=== PATIENT | male | born 1955 | race Caucasian/White ===

== ENCOUNTER 2017-05-27 10:01 | Observation (INO) | payer BC ==
[2017-05-27] MEDS ORDERED: NITROGLYCERIN OINT 1 INCH/GM PACKET TOPICAL STA (10:19)
[2017-05-27] MEDS ORDERED: ASPIRIN 81 MG CHEW PO STA (10:19)
--- NOTE | 2017-05-27 10:22 | ED ---
General Adult HPI - General Chief complaint: Chest Pain Stated complaint: Chest Pain Time Seen by Provider: 05/27/17 10:05 Source: patient, EMS, RN notes reviewed Mode of arrival: EMS Limitations: no limitations - History of Present Illness Initial comments: This is a 62-year-old male who presents emergency Department complaining of feeling nauseated. Patient states he then went to the bathroom and shortly thereafter started getting chest pain that radiated to his arm and it felt like a squeezing sensation both of his chest and his arm. Patient states he became very lightheaded at that point thought he might pass out. Patient denies passing out. Patient states he had no palpitations she denies any shortness of breath or difficulty breathing or any diaphoretic episodes. Patient states the discomfort in his chest and arm lasted for approximately 30 minutes. Patient denies any history of diabetes hypertension or high cholesterol he denies smoking and he denies any family history of heart disease. Patient states she' s not been feeling sick in any other way lately he denies fever denies chills or cough. Patient denies any abdominal pain. Patient denies any vomiting or diarrhea. - Related Data Home Medications Medication Instructions Recorded Confirmed Ibuprofen [Motrin] 400 mg PO Q8HR PRN 05/27/17 05/27/17 Allergies Allergy/AdvReac Type Severity Reaction Status Date / Time No Known Allergies Allergy Verified 05/27/17 10:28 Review of Systems ROS Statement: Those systems with pertinent positive or pertinent negative responses have been documented in the HPI. ROS Other: All systems not noted in ROS Statement are negative. Past Medical History Past Medical History: No Reported History Additional Past Medical History / Comment(s): back pain History of Any Multi-Drug Resistant Organisms: None Reported Additional Past Surgical History / Comment(s): , tendon reattached to right arm, . SINUS SURGERY. MPH PAIN PROCEDURES Past Anesthesia/Blood Transfusion Reactions: Postoperative Nausea & Vomiting ( PONV) Past Psychological History: No Psychological Hx Reported Smoking Status: Never smoker - Past Family History Father Family Medical History: Cancer General Exam - General Exam Comments Initial Comments: GENERAL: Patient is well-developed and well-nourished. Patient is nontoxic and well- hydrated and is in mild distress. ENT: Neck is soft and supple. No significant lymphadenopathy is noted. Oropharynx is clear. Moist mucous membranes. Neck has full range of motion without eliciting any pain. EYES: The sclera were anicteric and conjunctiva were pink and moist. Extraocular movements were intact and pupils were equal round and reactive to light. Eyelids were unremarkable. PULMONARY: Unlabored respirations. Good breath sounds bilaterally. No audible rales rhonchi or wheezing was noted. CARDIOVASCULAR: There is a regular rate and rhythm without any murmurs gallops or rubs. ABDOMEN: Soft and nontender with normal bowel sounds. No palpable organomegaly was noted. There is no palpable pulsatile mass. SKIN: Skin is clear with no lesions or rashes and otherwise unremarkable. NEUROLOGIC: Patient is alert and oriented x3. Cranial nerves II through XII are grossly intact. Motor and sensory are also intact. Normal speech, volume and content. Symmetrical smile. MUSCULOSKELETAL: Normal extremities with adequate strength and full range of motion. No lower extremity swelling or edema. No calf tenderness. LYMPHATICS: No significant lymphadenopathy is noted PSYCHIATRIC: Normal psychiatric evaluation. Normal interpersonal interactions appears functionally intact in deals appropriately with others. No signs of depression. No signs of anxiety. Limitations: no limitations Course Vital Signs 05/27/17 05/27/17 10:03 11:07 Temperature 97.8 F 97.9 F Pulse Rate 63 67 Respiratory 17 18 Rate Blood Pressure 136/72 113/61 O2 Sat by Pulse 96 97 Oximetry Medical Decision Making - Medical Decision Making EKG shows normal sinus rhythm at 64 bpm TN interval 170 QRS is 106 QT interval 360 QTC is 379 per patient's EKG shows no ST segment elevation or depression. Chest x-ray shows no acute normalities. I started the patient heparin because the significance of his clinical symptoms so he had no risk factors I spoke with Dr. Fletcher agreed to admit the patient I admitted the patient I wrote admitting orders and consult to cardiology. I continue the heparin and aspirin and Nitropaste on the floor. - Lab Data Result diagrams: 05/27/17 10:05/27/17 10:09 Lab Results 05/27/17 05/27/17 05/27/17 Range/Units 10:09 10: 10: WBC 4.5 (3.8-10.6) k/uL RBC 4.81 (4.30-5.90) m/uL Hgb 14.8 (13.0-17.5) gm/dL Hct 43.7 (39.0-53.0) % MCV 90.9 (80.0-100.0) fL MCH 30.9 (25.0-35.0) pg MCHC 34.0 (31.0-37.0) g/dL RDW 13.8 (11.5-15.5) % Plt Count 175 (150-450) k/uL Neutrophils % 66 % Lymphocytes % 21 % Monocytes % 8 % Eosinophils % 3 % Basophils % 1 % Neutrophils # 2.9 (1.3-7.7) k/uL Lymphocytes # 0.9 L (1.0-4.8) k/uL Monocytes # 0.3 (0-1.0) k/uL Eosinophils # 0.1 (0-0.7) k/uL Basophils # 0.0 (0-0.2) k/uL PT (9.0-12.0) sec INR (<1.2) APTT (22.0-30.0) sec Sodium 139 (137-145) mmol/L Potassium 4.3 (3.5-5.1) mmol/L Chloride 105 (98-107) mmol/L Carbon Dioxide 26 (22-30) mmol/L Anion Gap 8 mmol/L BUN 16 (9-20) mg/dL Creatinine 0.97 (0.66-1.25) mg/dL Est GFR (MDRD) Af Amer >60 (>60 ml/min/1.73 sqM) Est GFR (MDRD) Non-Af >60 (>60 ml/min/1.73 sqM) Glucose 108 H (74-99) mg/dL Calcium 9.0 (8.4-10.2) mg/dL Magnesium 1.8 (1.6-2.3) mg/dL Total Bilirubin 0.5 (0.2-1.3) mg/dL AST 21 (17-59) U/L ALT 39 (21-72) U/L Alkaline Phosphatase 72 (38-126) U/L Total Creatine Kinase 129 (55-170) U/L CK-MB (CK-2) 2.0 (0.0-2.4) ng/mL CK-MB (CK-2) Rel Index 1.6 Troponin I <0.012 (0.000-0.034) ng/mL Total Protein 6.5 (6.3-8.2) g/dL Albumin 3.9 (3.5-5.0) g/dL 05/27/17 Range/Units 10:09 WBC (3.8-10.6) k/uL RBC (4.30-5.90) m/uL Hgb (13.0-17.5) gm/dL Hct (39.0-53.0) % MCV (80.0-100.0) fL MCH (25.0-35.0) pg MCHC (31.0-37.0) g/dL RDW (11.5-15.5) % Plt Count (150-450) k/uL Neutrophils % % Lymphocytes % % Monocytes % % Eosinophils % % Basophils % % Neutrophils # (1.3-7.7) k/uL Lymphocytes # (1.0-4.8) k/uL Monocytes # (0-1.0) k/uL Eosinophils # (0-0.7) k/uL Basophils # (0-0.2) k/uL PT 10.4 (9.0-12.0) sec INR 1.0 (<1.2) APTT 24.5 (22.0-30.0) sec Sodium (137-145) mmol/L Potassium (3.5-5.1) mmol/L Chloride (98-107) mmol/L Carbon Dioxide (22-30) mmol/L Anion Gap mmol/L BUN (9-20) mg/dL Creatinine (0.66-1.25) mg/dL Est GFR (MDRD) Af Amer (>60 ml/min/1.73 sqM) Est GFR (MDRD) Non-Af (>60 ml/min/1.73 sqM) Glucose (74-99) mg/dL Calcium (8.4-10.2) mg/dL Magnesium (1.6-2.3) mg/dL Total Bilirubin (0.2-1.3) mg/dL AST (17-59) U/L ALT (21-72) U/L Alkaline Phosphatase (38-126) U/L Total Creatine Kinase (55-170) U/L CK-MB (CK-2) (0.0-2.4) ng/mL CK-MB (CK-2) Rel Index Troponin I (0.000-0.034) ng/mL Total Protein (6.3-8.2) g/dL Albumin (3.5-5.0) g/dL Critical Care Time Critical Care Time: Yes Total Critical Care Time: 35 Disposition Clinical Impression: Unstable angina pectoris Disposition: ADMITTED IP TO THIS HOSP Referrals: Kwame Dsouza MD [Primary Care Provider] - 1-2 days Time of Disposition: 11:28
[2017-05-27 10:29] LABS: Basophils % (A) 1 %; CH 31.4; CHCM 34.7; Eosinophils # (A) 0.1 k/uL (0-0.7); Eosinophils % (A) 3 %; HCT 43.7 % (39.0-53.0); HDW 2.64; HGB 14.8 gm/dL (13.0-17.5); Luc # (Auto) 0.08; Luc % (Auto) 2; Lymphocytes # (A) 0.9 k/uL (1.0-4.8); Lymphocytes % (A) 21 %; MCH 30.9 pg (25.0-35.0); MCV 90.9 fL (80.0-100.0); Mean Platelet Volume 7.8; Monocytes # (A) 0.3 k/uL (0-1.0); Monocytes % (A) 8 %; Neutrophils # (A) 2.9 k/uL (1.3-7.7); Neutrophils % (A) 66 %; RBC 4.81 m/uL (4.30-5.90); RDW 13.8 % (11.5-15.5); WBC 4.5 k/uL (3.8-10.6); WBC (Perox) 4.55
[2017-05-27 10:38] LABS: Partial Thromboplastin Time 24.5 sec (22.0-30.0); Prothrombin Time 10.4 sec (9.0-12.0)
[2017-05-27 10:44] LABS: ALT 39 U/L (21-72); AST 21 U/L (17-59); Alkaline Phosphatase 72 U/L (38-126); Anion Gap 8 mmol/L; Blood Urea Nitrogen 16 mg/dL (9-20); Carbon Dioxide 26 mmol/L (22-30); Chloride 105 mmol/L (98-107); Glucose 108 mg/dL (74-99); Magnesium 1.8 mg/dL (1.6-2.3); Non-African American GFR(MDRD) >60 (>60 ml/min/1.73 sqM); Potassium 4.3 mmol/L (3.5-5.1); Sodium 139 mmol/L (137-145); Total Bilirubin 0.5 mg/dL (0.2-1.3); Total Protein 6.5 g/dL (6.3-8.2)
--- NOTE | 2017-05-27 10:53 | XR ---
EXAMINATION TYPE: XR chest 2V DATE OF EXAM: 05/27/2017 COMPARISON: None HISTORY: 52-year-old male with chest pain TECHNIQUE: PA and lateral views FINDINGS: Heart is normal size. Mild elongation/ectasia of the thoracic aorta. Some prominence to the central p ulmonary arteries on the frontal view is not confirmed on the lateral view. Strandy atelectasis in th e mid and lower lungs. No consolidation or pleural effusion seen. IMPRESSION: Mild elongation/change of the thoracic aorta. Strandy areas of atelectasis. No acute process seen.
[2017-05-27 11:00] LABS: Creatine Kinase 129 U/L (55-170)
[2017-05-27 11:13] LABS: Troponin I <0.012 ng/mL (0.000-0.034)
[2017-05-27] MEDS ORDERED: NITROGLYCERIN SL TABS 0.4 MG TAB SUBLINGUAL PRN (11:29)
[2017-05-27] MEDS ORDERED: HEPARIN SODIUM,PORCINE 5,000 UNIT/ML 1 ML VIAL IV ONE (11:32)
[2017-05-27] MEDS: HEPARIN SODIUM,PORCINE/D5W PMX 25,000 UNIT in DEXTROSE/WATER 1 500ML.BAG IV SCH (11:56)
[2017-05-27] MEDS ORDERED: SODIUM CHLORIDE 0.9% 1,000 ML IV SCH (12:00)
[2017-05-27 16:39] LABS: Creatine Kinase 100 U/L (55-170)
[2017-05-27 16:54] LABS: Creatine Kinase MB 1.6 ng/mL (0.0-2.4); Troponin I <0.012 ng/mL (0.000-0.034)
[2017-05-27] MEDS: ACETAMINOPHEN TAB 325 MG TAB PO PRN (17:34)
[2017-05-27] MEDS ORDERED: HEPARIN SODIUM,PORCINE 5,000 UNIT/ML 1 ML VIAL IV PRN (19:08)
[2017-05-27] MEDS: NITROGLYCERIN OINT 1 INCH/GM PACKET TOPICAL SCH ×2 (19:42→23:33)
[2017-05-27 22:18] LABS: Creatine Kinase 88 U/L (55-170)
[2017-05-27 22:31] LABS: Creatine Kinase MB 1.4 ng/mL (0.0-2.4); Troponin I <0.012 ng/mL (0.000-0.034)
[2017-05-28 02:48] LABS: Cholesterol 148 mg/dL (<200); HDL Cholesterol 38 mg/dL (40-60)
[2017-05-28] MEDS: NITROGLYCERIN OINT 1 INCH/GM PACKET TOPICAL SCH ×2 (06:12→13:20)
[2017-05-28] MEDS: HEPARIN SODIUM,PORCINE/D5W PMX 25,000 UNIT in DEXTROSE/WATER 1 500ML.BAG IV SCH (06:30)
[2017-05-28 07:25] VITALS: RESP 16; TEMP 97.5
--- NOTE | 2017-05-28 08:01 | HP ---
DATE OF ADMISSION: 05/27/17 PRESENTING COMPLAINT: Chest pain. HISTORY OF PRESENTING COMPLAINT: This is a very pleasant 62-year-old patient of Dr. Dsouza, was at work today. 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 Developed a cramping sensation left side of the chest going down the left arm and numbness. Lasted a good half hour. The patient does feel tired all the time. After this episode he was dizzy. Denied any shortness of breath. No perspiration. EMS had blood pressure 167/82. Symptoms started residing after half an hour. No prior cardiac history. The patient is rather active. The patient and son at the bedside. REVIEW OF SYSTEMS: Constitutional: None. HEENT: None. Respiratory: None. Cardiovascular: As above. Gastrointestinal: None. : None. Musculoskeletal : Chronic low back pain, herniated disc. Dermatology: None. Hematological: None . Lymphatics: None. Neurological: none. Past history of lower herniated disc back, early cataract, mild short term memory problem, shingles 2005. Past surgical history of tendon reattached to right arm, colonoscopy, right rotator cuff surgery, dental implants, sinus surgery for deviated nasal septum. SOCIAL HISTORY: . 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 Smoked for about 17 years, stopped in 1985. Alcohol occasionally. . FAMILY HISTORY: No heart disease. Home medications: Ibuprofen 400 mg IV q8 prn. ALLERGIES: None. On examination, vital signs on presentation: Temperature 98. Pulse 66. Respiratory rate 20. Blood pressure 112/61. Pulse ox 98% on 2 L. GENERAL APPEARANCE: BMI 30.1, lying in bed, comfortable. EYES: pupils equal. Conjunctivae normal. Oral cavity normal. NECK: JVD not raised. RESPIRATORY: Effort normal. LUNGS: Clear. CARDIOVASCULAR: First and second sounds normal. No edema. ABDOMEN: Soft. Nontender. Liver and spleen not palpable. LYMPHATICS: No lymph nodes palpable in the neck and axillae. PSYCHIATRIC: Alert and oriented times three. Mood and affect normal. NEUROLOGICAL: Pupils equal. Cranial nerves grossly intact. Power and sensation grossly intact. INVESTIGATIONS: White count 4.5, hemoglobin 14.8. Potassium 4.3. Troponin times two negative. EKG normal sinus rhythm. ASSESSMENT: 1. Left precordial pain in a patient with minimal cardiac risk factors. Cannot rule out coronary syndrome. 2. Chronic lower back lumbar herniated disc. 3. Obesity, BMI 30.1. PLAN: Serial cardiac enzymes are in place. Cardiology consulted. The patient getting a stress test. The patient put on IV heparin and aspirin. Given a nitrate patch. Care was discussed with the patient and at the bedside. Questions answered. Copy to Dr. Dsouza. TONY
[2017-05-28] MEDS ORDERED: ASPIRIN 325 MG TAB PO SCH (09:00)
[2017-05-28] MEDS ORDERED: ATORVASTATIN 80 MG TAB PO STA (09:54)
[2017-05-28] MEDS ORDERED: ASPIRIN 325 MG TAB PO STA (09:54)
[2017-05-28] MEDS ORDERED: NITROGLYCERIN SL TABS 0.4 MG TAB SUBLINGUAL PRN (09:54)
[2017-05-28] MEDS ORDERED: SODIUM CHLORIDE 0.9% 1,000 ML in EMPTY BAG 1 BAG IV ONE (09:54)
[2017-05-28] MEDS ORDERED: ALPRAZolam 0.25 MG TAB PO PRN (09:54)
[2017-05-28] MEDS ORDERED: ALPRAZolam 0.5 MG TAB PO PRN (09:54)
[2017-05-28] MEDS ORDERED: IV FLUID CONTINUATION 1,000 ML IV ONE (11:31)
[2017-05-28] MEDS ORDERED: fentaNYL (PF) 50 MCG/ML 2 ML AMP IV ONE (11:59)
[2017-05-28] MEDS ORDERED: LIDOCAINE 2% INJ 20 MG/ML SQ ONE (11:59)
[2017-05-28] MEDS ORDERED: MIDAZOLAM 2 MG/2 ML VIAL IV ONE (11:59)
--- NOTE | 2017-05-28 12:00 | ECHOF ---
Referral Reason:chest pain MEASUREMENTS -------- HEIGHT: 0.0 cm WEIGHT: 0.0 kg BP: IVSd: 0.9 cm (0.6 - 1.1) LVIDd: 4.3 cm (3.9 - 5.3) LVPWd: 0.9 cm (0.6 - 1.1) IVSs: 1.5 cm LVIDs: 2.6 cm LVPWs: 1.6 cm LA Diam: 3.3 cm (2.7 - 3.8) Ao Diam: 3.3 cm (2.0 - 3.7) AV Cusp: 2.1 cm (1.5 - 2.6) LA Diam: 3.4 cm (2.7 - 3.8) MV EXCURSION: 20.824 mm (> 18.000) MV EF SLOPE: 118 mm/s (70 - 150) EPSS: 0.8 cm MV E Joselito: 0.59 m/s MV DecT: 169 ms MV A Joselito: 0.62 m/s MV E/A Ratio: 0.96 RAP: 5.00 mmHg RVSP: 24.97 mmHg FINDINGS -------- Sinus rhythm. This was a technically adequate study. LV size, wall thickness and systolic function are normal, with an EF greater than 55%. The right ventricle is normal in size. Normal LA size by volume 22+/-6 ml/m2. The right atrial size is normal. The aortic valve is trileaflet, and appears structurally normal. No aortic stenosis or regurgitation. Mild mitral regurgitation is present. Mild tricuspid regurgitation present. There is no evidence of pulmonary hypertension. The right ventricular systolic pressure, as measured by Doppler, is 24.97mmHg. There is no pulmonic regurgitation present. The aortic root size is normal. There is no pericardial effusion. CONCLUSIONS -------- 1. LV size, wall thickness and systolic function are normal, with an EF greater than 55%. 2. Mild mitral regurgitation is present. 3. Mild tricuspid regurgitation present. 4. There is no evidence of pulmonary hypertension. 5. The right ventricular systolic pressure, as measured by Doppler, is 24.97mmHg. 6. There is no pulmonic regurgitation present. 7. The aortic root size is normal. 8. There is no pericardial effusion. HOG CONFINEMENT SYSTEM MANAGER: Sabi Morgan RD
[2017-05-28] MEDS ORDERED: IOHEXOL 350 MG/ML 125ML BOTTLE INJ ONE (12:11)
[2017-05-28] MEDS ORDERED: RX INFO: IV CONTRAST WAS GIVEN 1 EACH MISC MISCELLANE PRN (12:26)
--- NOTE | 2017-05-28 12:26 | P.OP ---
Preoperative Diagnosis: Postoperative Diagnosis: Procedure(s) Performed: Implants: Indications for Procedure: Operative Findings: Description of Procedure: Coronary angiography. History. This patient was admitted with the symptoms suggestive for unstable angina syndrome. EKG and cardiac enzymes were normal. The new onset of for symptoms of for resting pain patient was advised cardiac catheterization for definitive diagnosis Procedure. Right groin was prepped and prepped in the usual manner and the skin was infiltrated with 2% Xylocaine. Right femoral artery was entered using Seldinger technique and #6-Slovak sheath was placed in. Selective coronary angiography was then performed in multiple projections and the left ventricular pressures were obtained. Sheath was removed and good hemostasis was achieved with the use of Angio-Seal. Hemodynamics left ventricular end-diastolic pressure is 18 mmHg prior to angiography and no gradient is noted across the aortic valve. Coronary angiography. Left main coronary artery is normal. LAD is a good caliber blood vessel. U/a good size diagonal branch. LAD and its branches are normal. Circumflex coronary artery is codominant in its distribution. U/A good size obtuse marginal branch which subsequently gives rise togood size PLV branches circumflex coronary artery and its branches are normal. Right coronary artery is a relatively small caliber blood vessels. It gives rise to a small size PDA branch. Right coronary artery and its branches are normal. Recommendations symptomatic medical therapy and the risk factor modification.
[2017-05-28] MEDS ORDERED: SODIUM CHLORIDE 0.9% 1,000 ML IV SCH (12:30)
--- NOTE | 2017-05-28 12:54 | P.CRDCN ---
History of Present Illness Consult date: 05/28/17 Consult reason: chest pain History of present illness: This is a 62-year-old male who presented to the emergency department complaining of chest pain. He states he started feeling nauseated so he went into the restroom. Shortly after coming out of the restroom he started getting a chest pain described as a squeezing the left side of the chest. The pain radiated down the left upper arm and he complained of tingling to the left lower arm. He became very lightheaded at that point but did not pass out. He denies palpitations, shortness of breath or any diaphoresis. He states the pain subsided after approximately 30 minutes. He was given aspirin and nitroglycerin sublingual per EMS. He complains of a chronic cough, nonproductive. He denies any cardiac history, has never had a stress test and is a former smoker. He quit in his 30s. EKG shows a normal sinus mechanism, no ST changes and no acute abnormalities. Troponin results are negative. Chest x-ray shows mild elongation of the thoracic aorta with some prominence to the central pulmonary arteries with strandy atelectasis in the mid and lower lungs. He only takes Motrin daily for chronic back pain. Review of Systems REVIEW OF SYSTEMS: Patient denies any chest discomfort. No shortness of breath. No diaphoresis. He denies headache, dizziness, blurred vision, double vision. No dyspnea on exertion. Patient denies any stomach discomfort. No nausea, vomiting. No hematochezia. No hematemesis. Denies any black stools or blood in his stools. No syncope. No palpitations. No cough. No recent fever or chills. Denies dysuria or hematuria. No muscle weakness or numbness. Past Medical History Past Medical History: No Reported History Additional Past Medical History / Comment(s): chronic back pain"ruptured/ herniated disc",ddd, beginning of cataracts,past concussions mild short term memory problem, shingles 2006 History of Any Multi-Drug Resistant Organisms: None Reported Additional Past Surgical History / Comment(s): tendon reattached to right arm, colonoscopy, rt rotator cuff, dental implants. SINUS SURGERY-deviated septum. MPH PAIN PROCEDURES Past Anesthesia/Blood Transfusion Reactions: Postoperative Nausea & Vomiting ( PONV) Additional Past Anesthesia/Blood Transfusion Reaction / Comment(s): does'nt like to be in tight places like mri/ct machines Smoking Status: Former smoker - Past Family History Mother Additional Family Medical History / Comment(s): irreg heart beat-pacemaker Father Family Medical History: Cancer Medications and Allergies Home Medications Medication Instructions Recorded Confirmed Type Ibuprofen [Motrin] 400 mg PO Q8HR PRN 05/27/17 05/27/17 History Allergies Allergy/AdvReac Type Severity Reaction Status Date / Time No Known Allergies Allergy Verified 05/27/17 10:28 Physical Exam Vitals: Vital Signs Temp Pulse Pulse Resp BP BP Pulse Ox 05/28/17 07:23 97.5 F L 71 16 134/81 96 05/28/17 03:57 18 05/28/17 03:22 98 F 62 18 97/50 96 05/27/17 23:32 18 05/27/17 23:15 71 18 105/63 96 05/27/17 20:37 95 05/27/17 19:47 18 05/27/17 19:45 97.9 F 67 18 119/61 93 L 05/27/17 16:19 97.5 F L 66 16 115/55 96 05/27/17 15:53 98.6 F 81 20 118/56 98 05/27/17 14:00 60 20 116/63 96 05/27/17 13:00 64 20 109/65 96 05/27/17 11:59 98.0 F 66 20 112/61 98 05/27/17 11:07 97.9 F 67 18 113/61 97 05/27/17 10:03 97.8 F 63 17 136/72 96 Intake and Output 05/27/17 05/28/17 05/28/17 22:59 06:59 14:59 Intake Total 154 777.316 Balance 154 777.316 Intake: IV 125 Heparin Sodium,Porcine/ 125 D5w Pmx 25,000 unit In Dextrose/Water 1 500ml. bag @ 10 UNITS/KG/HR 19. 95 mls/hr IV .Q24H FABI Rx #:[id number] Intake, IV Titration 154 402.316 Amount Heparin Sodium,Porcine/ 154 282.316 D5w Pmx 25,000 unit In Dextrose/Water 1 500ml. bag @ 10 UNITS/KG/HR 19. 95 mls/hr IV .Q24H [facility]I Rx #:[id number] Sodium Chloride 0.9% 1, 120 000 ml @ 20 mls/hr IV . Q24H FABI Rx#:[id number] Oral 250 Other: Voiding Method Toilet Toilet # Voids 2 Weight 100.8 kg GENERAL: This is a 62-year-old male in no apparent distress at the time of my examination. HEENT: Head is atraumatic, normocephalic. Pupils are equal, round. Sclerae anicteric. Conjunctivae are clear. Mucous membranes of the mouth are moist. Neck is supple. There is no jugular venous distention. No carotid bruit is heard. LUNGS: Clear to auscultation no wheezes, rales or rhonchi. No chest wall tenderness is noted on palpation or with deep breathing. HEART: Regular rate and rhythm without murmurs, rubs or gallops. S1 and S2 heard. ABDOMEN: Soft, nontender. Bowel sounds are heard. No organomegaly noted. EXTREMITIES: 2+ peripheral pulses with no evidence of peripheral edema and no calf tenderness noted. NEUROLOGIC: Patient is awake, alert and oriented x3. Results 05/27/17 10:09 05/27/17 10:09 Cardiac Enzymes 05/27/17 05/27/17 05/27/17 Range/Units 10:09 10:09 16:05 AST 21 (17-59) U/L CK-MB (CK-2) 2.0 1.6 (0.0-2.4) ng/mL Troponin I <0.012 <0.012 (0.000-0.034) ng/mL 05/27/17 Range/Units 21:50 AST (17-59) U/L CK-MB (CK-2) 1.4 (0.0-2.4) ng/mL Troponin I <0.012 (0.000-0.034) ng/mL Coagulation 05/27/17 05/27/17 05/28/17 Range/Units 10:09 18:16 01:55 PT 10.4 (9.0-12.0) sec APTT 24.5 34.0 H 57.5 H (22.0-30.0) sec Lipids 05/28/17 Range/Units 02:00 Triglycerides 90 (<150) mg/dL Cholesterol 148 (<200) mg/dL HDL Cholesterol 38 L (40-60) mg/dL CBC 05/27/17 Range/Units 10:09 WBC 4.5 (3.8-10.6) k/uL RBC 4.81 (4.30-5.90) m/uL Hgb 14.8 (13.0-17.5) gm/dL Hct 43.7 (39.0-53.0) % Plt Count 175 (150-450) k/uL Comprehensive Metabolic Panel 05/27/17 Range/Units 10:09 Sodium 139 (137-145) mmol/L Potassium 4.3 (3.5-5.1) mmol/L Chloride 105 (98-107) mmol/L Carbon Dioxide 26 (22-30) mmol/L BUN 16 (9-20) mg/dL Creatinine 0.97 (0.66-1.25) mg/dL Glucose 108 H (74-99) mg/dL Calcium 9.0 (8.4-10.2) mg/dL AST 21 (17-59) U/L ALT 39 (21-72) U/L Alkaline Phosphatase 72 (38-126) U/L Total Protein 6.5 (6.3-8.2) g/dL Albumin 3.9 (3.5-5.0) g/dL Current Medications Generic Name Dose Route Start Last Admin Trade Name Freq PRN Reason Stop Dose Admin Acetaminophen 650 mg 05/27/17 17:23 05/27/17 17:34 Tylenol Tab PO 650 mg Q6HR PRN Administration Fever and/ or Pain Aspirin 325 mg 05/28/17 09:00 Aspirin PO DAILY [facility] Heparin Sodium (Porcine) 0 unit 05/27/17 19:08 05/27/17 19:38 Heparin IV 4,000 unit PER PROTOCOL PRN Administration Low PTT Protocol Heparin Sodium/Dextrose 25,000 500 mls @ 19.95 mls/hr 05/27/17 11:45 06:30 unit/ IV Solution IV 13.02 units/kg/hr .Q24H FABI 25.98 mls/hr Protocol Administration 10 UNITS/KG/HR Sodium Chloride 1,000 mls @ 20 mls/hr 05/27/17 12:00 05/27/17 11:56 Saline 0.9% IV 20 mls/hr .Q24H FABI Administration Nitroglycerin 1 inch 05/27/17 18:00 05/28/17 06:12 Nitro-Bid Oint TOPICAL Not Given Q6HR [facility] Nitroglycerin 0.4 mg 05/27/17 11:29 Nitrostat SUBLINGUAL Q5M PRN Chest Pain Intake and Output 05/27/17 05/28/17 05/28/17 22:59 06:59 14:59 Intake Total 154 777.316 Balance 154 777.316 Intake: IV 125 Heparin Sodium,Porcine/ 125 D5w Pmx 25,000 unit In Dextrose/Water 1 500ml. bag @ 10 UNITS/KG/HR 19. 95 mls/hr IV .Q24H [facility]I Rx #:[id number] Intake, IV Titration 154 402.316 Amount Heparin Sodium,Porcine/ 154 282.316 D5w Pmx 25,000 unit In Dextrose/Water 1 500ml. bag @ 10 UNITS/KG/HR 19. 95 mls/hr IV .Q24H [facility] Rx #:[id number] Sodium Chloride 0.9% 1, 120 000 ml @ 20 mls/hr IV . Q24H [facility]I Rx#:[id number] Oral 250 Other: Voiding Method Toilet Toilet # Voids 2 Weight 100.8 kg 05/27/17 10:09 05/27/17 10:09 - Imaging and Cardiology Echo: report reviewed (Maintained left ventricular function, ejection fraction greater than 55% no pericardial effusion) - EKG Interpretation EKG: sinus rhythm, normal QRS, normal ST/T Assessment and Plan Plan: ASSESSMENT 1. Chest pain, suggestive of an acute coronary syndrome PLAN At this time we will recommend the patient undergo cardiac catheterization to assess for coronary artery stenosis. Risks and benefits of the procedure explained to the patient with verbalized understanding. His is also at the bedside. Questions answered appropriately. An echocardiogram will be performed prior to catheterization. Recommendations will follow pending clinical course. Nurse Practitioner note has been reviewed, I agree with a documented findings and plan of care. Patient was seen and examined.
[2017-05-28 16:20] VITALS: BP 126/64; PULSE 67
[2017-05-28] MEDS: ACETAMINOPHEN TAB 325 MG TAB PO PRN (17:25)
--- NOTE | 2017-06-02 12:33 | DS ---
FINAL DIAGNOSES: 1. Left precordial chest pain, likely musculoskeletal. 2. Chronic low back lumbar herniated disc. 3. Obesity, BMI of 30.1. PROCEDURE: Cardiac catheterization. CONSULTATION: Dr. Jovanna Silveira from cardiology. HOSPITAL COURSE: This patient presented with left precordial chest pain with some reducible pain. The patient does lift heavy objects. Troponins were negative. LDL was 92. Cardiac cath revealed normal coronaries. DISCHARGE MEDICATIONS: Motrin 400 mg q8 p.r.n. Follow up with Dr. Dsouza in two days. Follow up with Dr. Jovanna Silveira in one week. Additionally, 2D echo showed EF of 55%. MTDD
== END 2017-05-28 19:30 | disposition home or self-care (01) ==
LOC: EC 10:01 → 3OBS 11:29
PROVIDERS: ADMIT Hospitalist; ATTEND Hospitalist
DX: R07.2 Precordial pain (principal); R07.89 Other chest pain; R05 Cough; R42 Dizziness and giddiness; R20.0 Anesthesia of skin; R20.2 Paresthesia of skin; G89.29 Other chronic pain; M54.9 Dorsalgia, unspecified; M51.26 Other intervertebral disc displacement, lumbar region; Z87.891 Personal history of nicotine dependence; Z68.30 Body mass index [BMI] 30.0-30.9, adult; E66.9 Obesity, unspecified; Z79.1 Long term (current) use of non-steroidal anti-inflammatories (NSAID); Z87.820 Personal history of traumatic brain injury
CPT/HCPCS: 99291; 96365 ×2; 96376 ×3; 96366 ×7; 36415; 94760; 93005; 93306; 93458; 80061; 80053; 82550; 82553; 83735; 84484; 85025; 85610; 85730 ×2; 71020; G0378 ×2; C1760; C1894; C1769; J2001; J2250; J1644 ×3; J3010; Q9967

== ENCOUNTER → 2017-06-18 | Outpatient (CLI) | payer BC ==
--- NOTE | 2017-06-18 09:15 | US ---
EXAMINATION TYPE: US abdomen limited DATE OF EXAM: 06/18/2017 COMPARISON: NONE CLINICAL HISTORY: Epigastric pain R10.13. Nausea, epigastric pain EXAM MEASUREMENTS: Liver Length: 14.3 cm Gallbladder Wall: 0.4 cm CBD: 0.2 cm Right Kidney: 13.1 x 5.3 x 4.8 cm Pancreas: limited evaluation due to overlying bowel content Liver: appears wnl Gallbladder: no evidence of stones, GB wall slightly thickened Evidence for sonographic Love's sign: no CBD: appears wnl Right Kidney: upper limits of normal in size IMPRESSION: 1. Mild gallbladder wall thickening may be related to a degree of contraction. No gallstones identifi ed.
== END | disposition home or self-care (01) ==
LOC: RADUSWWP 07:47
PROVIDERS: ATTEND Internal Medicine Cardiovascular Disease
DX: K82.8 Other specified diseases of gallbladder (principal)
CPT/HCPCS: 76705

== ENCOUNTER → 2018-06-17 | Outpatient (CLI) | payer BC ==
--- NOTE | 2018-06-18 07:41 | US ---
EXAMINATION TYPE: US kidneys/renal and bladder DATE OF EXAM: 06/17/2018 COMPARISON: US CLINICAL HISTORY: R31.9 Hematuria. Patient has been taking Ibuprofen x 15 years for low back pain. No hematuria noted by patient since D/C Ibuprofen. EXAM MEASUREMENTS: Right Kidney: 11.5 x 7.6 x 4.7 cm Left Kidney: 11.8 x 4.8 x 6.2 cm Post Void Residual Volume: 15.9 mL Right Kidney: No hydronephrosis or masses seen Left Kidney: No hydronephrosis or masses seen Bladder: wnl Bilateral Jets seen: Yes Normal Post Void Residual: Yes There is no evidence for hydronephrosis at this point in time. No nephrolithiasis is seen. No laan s are identified. The urinary bladder is anechoic. Bilateral ureteral jets are seen. IMPRESSION: No significant abnormality appreciated.
== END | disposition home or self-care (01) ==
LOC: RADUSWWP 16:25
PROVIDERS: ATTEND Family Medicine
DX: R31.9 Hematuria, unspecified (principal)
CPT/HCPCS: 76770

== ENCOUNTER → 2018-10-13 | Outpatient (CLI) | payer BC ==
--- NOTE | 2018-10-13 15:05 | P.PAINCN ---
History of Present Illness - Reason for Consult Consult date: 10/13/18 - History of Present Illness Mr. Ly is a 63-year-old gentleman who presents to the new patient consult. He presents from Dr. Doherty's office. He had a history of low back pain for many years but recently reaggravated his pain in January of this year. He was injured at work and he was injured by a forklift. He continues to have low back pain going across his low back with lower extremity radiculopathy. He describes numbness and tingling in his right leg pain in his left leg along with numbness in that left leg as well. He denies any specific weaknesses in his lower extremities. Denies any bowel or bladder incontinence. He reports he seen Dr. Doherty and is ordered an MRI which he brought in the disc today. He reports Dr. Doherty did not want her doing any surgery at this time. He reports he uses ibuprofen as needed for his pain and does not like to take any opioids. He reports he continues to work full-time at [employer]. He reports most of his pain is worse with bending over and lifting things or holding things out in front of him. He reports his pain is better with rest and worse with prolonged activity. Review of Systems 12 point review of systems done is negative except as noted in HPI Past Medical History Past Medical History: No Reported History Additional Past Medical History / Comment(s): chronic back pain"ruptured/ herniated disc",ddd, beginning of cataracts,past concussions mild short term memory problem, shingles 2006 History of Any Multi-Drug Resistant Organisms: None Reported Additional Past Surgical History / Comment(s): tendon reattached to right arm, colonoscopy, rt rotator cuff, dental implants. SINUS SURGERY-deviated septum. [facility] PAIN PROCEDURES Past Anesthesia/Blood Transfusion Reactions: Postoperative Nausea & Vomiting ( PONV) Additional Past Anesthesia/Blood Transfusion Reaction / Comm: does'nt like to be in tight places like mri/ct machines Past Psychological History: No Psychological Hx Reported Additional Psychological History / Comment(s): pt is indepedant. lives with in single level home that has 4 porchs steps. pets: 2 dogs.no home care services recieved, no medical equipment. no service. 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 Smoking Status: Former smoker Past Alcohol Use History: Occasional Additional Past Alcohol Use History / Comment(s): started smokng age 14(1968) smoked less than 1 ppd, quit age 31(1985) Past Drug Use History: None Reported - Past Family History Mother Additional Family Medical History / Comment(s): irreg heart beat-pacemaker Father Family Medical History: Cancer Medications and Allergies Home Medications Medication Instructions Recorded Confirmed Type Ibuprofen [Motrin] 400 mg PO Q8HR PRN 05/27/17 10/13/18 History Allergies Allergy/AdvReac Type Severity Reaction Status Date / Time No Known Allergies Allergy Verified 10/13/18 13:58 Physical Exam Vitals: Intake and Output 10/13/18 10/13/18 10/13/18 06:59 14:59 22:59 Other: Weight 104.326 kg General: Awake and alert oriented 3 no distress Respiratory exam: No audible wheezing no accessory muscle usage Cardiovascular exam: regular rate, palpable bilateral pulses, no lower extremity edema Abdominal exam: No distention nontender to palpation Cervical spine: Normal alignment, Spurling's negative, facet loading negative Lumbar spine: Exaggerated lumbar lordosis, with minimal level scoliosis, non- tender to palpation over bilateral paraspinal muscles, facet loading is positive bilaterally. Straight leg raise is positive bilateral. His strength is 5 out of 5 in bilateral lower extremities. Sacroiliac joints: Nontender to palpation, LOBO is negative, [place] negative Neuro exam: Normal sensation in bilateral upper extremities, deep tendon reflexes are 2+ bilateral upper extremities. Normal sensation in bilateral lower extremities. Deep tendon reflexes are decreased in bilateral lower extremities and absent in his patellar tendons. Psych exam: Cooperative, appropriate mood Results Comments: MRI of the lumbar spine shows evidence of scoliosis as well as an exaggerated lumbar lordosis. There is no evidence of any listhesis. Neural foramens appear to be patent but there is some artifact of the MRI. There is significant degenerative disc disease and disc bulging in the L4-L5 level. There is also significant facet hypertrophic possible ligamentum flavum hypertrophic causing some spinal stenosis at those levels. 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 I advised him that since he had good relief with epidural steroid injections in the past for his pain I believe repeating the injection may be of benefit. I advised him all the risks benefits and alternatives to the procedure. I advised him that it may not be very helpful and results in the past do not necessarily imply results during these procedures. Also discussed with him potentially doing medial branch blocks if the lumbar epidural steroid injections do not help. I've advised him to stay active and continue working full-time using ibuprofen only as needed. Time with Patient: Greater than 30 PQRS Measure Charge Sheet PQRS Narrative: Smoking Status Former smoker Do You Want the Pneumonia No Vaccine AT THIS TIME? Pain Intensity [Lower Back] 5 Hx Alcohol Use (MH) No Home Medications: Ambulatory Orders Ibuprofen [Motrin] 400 mg PO Q8HR PRN 05/27/17
== END ==
LOC: PNWHC3 13:36
PROVIDERS: ATTEND Hospitalist
DX: M51.16 Intervertebral disc disorders with radiculopathy, lumbar region (principal); M47.26 Other spondylosis with radiculopathy, lumbar region; M46.96 Unspecified inflammatory spondylopathy, lumbar region; Z87.891 Personal history of nicotine dependence
CPT/HCPCS: 99211

== ENCOUNTER 2018-11-08 09:59 | Day surgery (SDC) | payer BC ==
[2018-11-04 14:45] VITALS: BMI 31.1
[~2018-11-08 09:59] MED LIST: SODIUM CHLORIDE 0.9% 500 ML 500 ML IV SCH
[2018-11-08 10:32] VITALS: RESP 16; TEMP 97.7
[2018-11-08] MEDS ORDERED: LACTATED RINGERS 1,000 ML IV ONE (10:41)
[2018-11-08] MEDS ORDERED: LIDOCAINE 1% 20 ML VIAL (10MG/ML) FOR IV START INTRADERMA ONE (10:41)
--- NOTE | 2018-11-08 11:44 | P.PCN ---
Date of Procedure: 11/08/18 Procedure(s) Performed: PREOPERATIVE DIAGNOSIS: 1- Lumbar Degenerative Disc Diseases 2-Lumbar spondylosis with Facet arthropathy without myelopathy. 3-lumbar radiculopathy. POSTOPERATIVE DIAGNOSIS: 1-Lumber Degenerative Disc Diseases 2-Lumbar spondylosis with Facet arthropathy without myelopathy. 3-lumbar radiculopathy. PROCEDURE 1. Lumbar epidural steroid injection under fluoroscopic guidance at the L5-S1 level. 2. Lumbar epidurogram. ANESTHESIA: Local with 1% lidocaine 3 ml and , moderate sedation with intravenous Versed 2 mg ,and fentanyle 50 Mcg EBL: Minimal PROCEDURE INDICATION: The patient with low back pain and radiculitis symptoms unresponsive to conservative treatment. Fluoroscopy was used to optimize visualization of the needle placement and to maximize safety. PROCEDURE DESCRIPTION / TECHNIQUE: The patient was seen and identified in the preoperative area. Risks, benefits , complications including but not limited to infections ,bleeding ,allergic reaction to the medications ,nerve damage and not complete pain releife , and alternatives were discussed with the patient. The patient agreed to proceed with the procedure and signed the consent. IV was started, and vital signs were stable. Patient was taken to the OR and time out was completed. The patient was placed in the prone position on procedure table and a pillow was placed under the abdomen to reduce lumbar lordosis. The lumbosacral area was prepped and draped in the usual sterile fashion.ere closely monitored during the procedure. Conscious sedation was used during the procedure to decrease patients anxiety. Vital signs was monitered during the entire procedure. Using anterior-posterior fluoroscopy, the L5-S1 interlaminar space was identified and the skin over this site was marked and then infiltrated with 1% lidocaine subcutaneously. Subsequently, a 20-gauge Tuohy epidural needle was inserted and advanced toward the epidural space using the ``Loss of resistance technique and guided by AP and lateral fluoroscopy. The correct needle position in the epidural space was verified with the injection of 2 mL of the water soluble contrast dye Isovue 200 contrast and observing an excellent epidurogram with the epidural spread of the dye, after negative aspiration for blood and CSF and in the absence of paresthesias. Again after negative aspiration, a 6 ml mixture containing 80 mg of Depo-medrol , and 2 ml of preservative free Normal Saline, and 2 ml of preservative free lidocaine 1% solution was injected and a washout of epidurogram was seen. Needle was withdrawn intact, skin was cleansed, and bandages were applied. COMPLICATIONS: None DISPOSITION / PLANS: The patient was placed in a supine position and transferred to the recovery area in a stable condition for observation. There was no evidence of lower extremity motor or sensory deficit after the procedure. Patient was discharged from the recovery room after meeting discharge criteria. Home discharge instructions were given to the patient by the staff. The patient was reexamined prior to discharge. The patient will schedule a follow up in the clinic in 2-4 weeks.
[2018-11-08] MEDS ORDERED: IV FLUID CONTINUATION 500 ML IV ONE (11:54)
--- NOTE | 2018-11-08 11:59 | FL ---
EXAMINATION TYPE: FL guided pain mgmt statistic DATE OF EXAM: 11/08/2018 HISTORY: Flouroscopy time 3 seconds of fluoroscopy provided. IMPRESSION: 1. Fluoroscopy time.
[2018-11-08 12:16] VITALS: BP 147/88; PULSE 64
== END 2018-11-08 12:45 | disposition home or self-care (01) ==
LOC: ORPAIN 09:59
PROVIDERS: ATTEND Specialist
DX: M51.16 Intervertebral disc disorders with radiculopathy, lumbar region (principal); M47.26 Other spondylosis with radiculopathy, lumbar region
CPT/HCPCS: 62323; J1030; Q9966

== ENCOUNTER → 2018-11-23 | Day surgery (SDC) | payer BC ==
[2018-11-22 10:21] VITALS: BMI 31.1
[~2018-11-23] MED LIST changes: +IV FLUID CONTINUATION 1,000 ML IV ONE; +LACTATED RINGERS 1,000 ML IV ONE; +LIDOCAINE 1% 20 ML VIAL (10MG/ML) FOR IV START INTRADERMA ONE
[2018-11-23 09:51] VITALS: TEMP 97.4
--- NOTE | 2018-11-23 10:46 | P.PCN ---
Date of Procedure: 11/23/18 Surgeon: Willa Hunter Pathology: none sent Condition: stable Disposition: PACU Description of Procedure: PREOPERATIVE DIAGNOSIS: 1-Lumbar radiculopathy 2- Lumber Degenerative Disc Diseases. POSTOPERATIVE DIAGNOSIS: 1-Lumbar radiculopathy. 2-Lumbar Degenerative Disc Diseases PROCEDURE 1. Lumbar epidural steroid injection under fluoroscopic guidance at the L4-5 level in the right paramedian approach. 2. Lumbar epidurogram. ANESTHESIA: Local with 1% lidocaine; and IV moderate conscious sedation with Versed and fentanyl EBL: Minimal PROCEDURE INDICATION: The patient with low back pain and radiculitis symptoms unresponsive to conservative treatment. Fluoroscopy was used to optimize visualization of the needle placement and to maximize safety. PROCEDURE DESCRIPTION / TECHNIQUE: The patient was seen and identified in the preoperative area. Risks, benefits , complications including but not limited to infections ,bleeding ,allergic reaction to the medications ,nerve damage and not complete pain relief , and alternatives were discussed with the patient. The patient agreed to proceed with the procedure and signed the consent. IV was started, and vital signs were stable. Patient was taken to the OR and time out was completed. The patient was placed in the prone position on procedure table and a pillow was placed under the abdomen to reduce lumbar lordosis. The lumbosacral area was prepped and draped in the usual sterile fashion with ChloraPrep.Patient was closely monitored during the procedure. Conscious sedation was used during the procedure to decrease patients anxiety. Vital signs were monitered during the entire procedure. Using anterior-posterior fluoroscopy, the L4-5 interlaminar space was identified and the skin over this site was marked and then infiltrated with 1% lidocaine subcutaneously. Subsequently, a 20-gauge Tuohy epidural needle was inserted and advanced toward the epidural space using the Loss of resistance to air technique and guided by AP and lateral fluoroscopy. The correct needle position in the epidural space was verified with the injection of 1 mL of the water soluble contrast dye Isovue 200 contrast and observing an excellent epidurogram with the epidural spread of the dye, after negative aspiration for blood and CSF and in the absence of paresthesias. Again after negative aspiration, a 8 ml mixture containing 40 mg of Kenalog and 5 ml of preservative free Normal Saline, and 2 ml of preservative free ropivacaine 0.5% solution was injected and a washout of epidurogram was seen. Needle was withdrawn intact, skin was cleansed, and bandages were applied. patient tolerated procedure well and was transferred to PACU in stable condition. COMPLICATIONS: None DISPOSITION / PLANS: The patient was placed in a supine position and transferred to the recovery area in a stable condition for observation. There was no evidence of lower extremity motor or sensory deficit after the procedure. Patient was discharged from the recovery room after meeting discharge criteria. Home discharge instructions were given to the patient by the staff. The patient was reexamined prior to discharge. The patient will schedule a follow up in the clinic in 2-4 weeks.
--- NOTE | 2018-11-23 10:53 | FL ---
EXAMINATION TYPE: FL guided pain mgmt statistic DATE OF EXAM: 11/23/2018 HISTORY: Flouroscopy time 4 seconds of fluoroscopy provided. IMPRESSION: 1. Fluoroscopy time.
[2018-11-23 11:00] VITALS: RESP 18
[2018-11-23 11:21] VITALS: BP 142/79; PULSE 67
== END ==
LOC: ORPAIN 09:13
PROVIDERS: ATTEND Anesthesiology
DX: M51.16 Intervertebral disc disorders with radiculopathy, lumbar region (principal)
CPT/HCPCS: 62323; J2250; J3010; Q9966

== ENCOUNTER → 2019-01-05 | Outpatient (CLI) | payer BC ==
[2019-01-05 14:15] VITALS: BP 135/77; PULSE 79; RESP 16
--- NOTE | 2019-01-05 20:46 | P.PAINPG ---
Subjective Progress Note Date: 01/05/19 This is follow-up visit for this patient with a history of severe and chronic low back pain secondary to lumbar degenerative disc diseases , lumbar spondylosis with facet arthropathy, We have done interventional pain procedures lumbar epidural steroid injections 2, patient reported that he got R Shell and short-term benefit after each epidural steroid injection Patients currently on Motrin every 8 hours Patient denies any side effects of the medication, Patient denies any motor or sensory deficit , patient denies any fever or night sweats, denies any change in the bowel movements or urination Physical Examinations : -Constitutional : Cooperative , not in acute distress . -HEENT : nech ; supple , no Lymphadenopathy , no Thyromegaly , normal thyroid size . eyes : no ptosis , no icterus, no photophobia . ENT : normal of hearing , normal oropharynx , no Thrush . - Respiratory : Chest clear to auscultations Bilaterally , no wheezing , no Rhonchi . - Cardiovascular : regular rate and rhythem , S1 , S2 , no S3 , no S4. - Gastrointestinal : abdomen soft no tenderness , bowel sounds positive all four quadrents , no organomegally . - Genitourinary : Defferred . - neurologic: Cranial nerve II to XII intact , no focal neurological deffecit . - Psychatric: alert , oriented X 3 , appropriate affect , intact judgment and insight . - Lymphatic : no Lymphadenopathy . - Musculoskeltal : exams of the cervical spine = motor strength normal bilateral upper extremities facet loading test cervical area positive. exams of the Lumber spine =motor strength lower extremities ,thigh and legs .5/5 deep tendon reflexes : normal Knee Jerk , normal ankle Jerk . lumber facet Loading Test positive strait leg raising test positive at 60 degree , Rt , and 60 on the left side Fabere test negative bilaterally Range of motion: Range of motion in flexion of the lumbar spine 30 degrees Range of motion range of motion of extension of the lumbar spine 10 MRI of the lumbar spine done [facility] July [facility]= mild retrolisthesis, L3 4 facet degeneration and ligamentum flavum hypertrophy L4 5 facet degeneration L5-S1 facet degeneration, and multilevel lumbar degenerative disc disease Assessment and plan = Chronic low back pain secondary to lumbar degenerative disc disease , lumbar spondylosis with facet arthropathy without myelopathy Patient had partial and short-term benefit after lumbar epidural steroid injection done x2 Patient will be good candidate to have diagnostic medial branch block lumbar area at L3 4, L4 5, L5-S1 , and effects positive then we will proceed with a radiofrequency ablation of the medial branch lumbar area Objective - Vital Signs Vital signs: Vital Signs Temp Pulse 79 01/05/19 14:05 Resp 16 01/05/19 14:05 BP 135/77 01/05/19 14:05 Pulse Ox Intake & Output 01/05/19 01/05/19 01/06/19 06:59 18:59 06:59 Weight 102.058 kg PQRS Measure Charge Sheet Measure #130: Documentation of Current Meds in Medical Chart: Patient's medications documented in chart Measure #226: Tobacco Use: Screen & Cessation Intervention: Pt not a tobacco user Measure #111: Pneumonia Vaccination: Pneumococcal vaccine NOT administered or previously given Measure #47: Advance Care Plan: Advance care planning discussed & documented, pt chose/unable to give Measure #412: Opioid Treatment Agreement: No documentation of signed opioid heather tment agreement Measure #408: Opioid Therapy Follow-up Evaluation: Patient had NO f/u eval minimum every 3 months during opioid therapy Measure #317: Preventitive Care & Scrn High Bld Press & F/U: Normal blood pressure, f/u not required Measure #128: Body Mass Index (BMI) Screening & Follow-up: BMI documented ABOVE normal parameters - f/u documented Measure #131: Pain Assessment & Follow-up: Pain positive & plan documented, Follow-up scheduled Measure #431: Unhealthy Alcohol Use Preventative Care & Scrn: Patient not identified as an unhealthy alcohol user PQRS Narrative: Smoking Status Former smoker Blood Pressure 135/77 Pain Intensity [Bilateral 1 Lower Back] Scale Used Numeric (1 - 10) Hx Alcohol Use (MH) No Home Medications: Ambulatory Orders Ibuprofen [Motrin] 400 - 800 mg PO Q8HR PRN 05/27/17 Controlled Substance Measures - Controlled Substance Measures Is patient prescribed a controlled substance at discharge?: No
== END ==
LOC: PNWHC3 13:16
PROVIDERS: ATTEND Specialist
DX: G89.29 Other chronic pain (principal); M51.36 Other intervertebral disc degeneration, lumbar region; M47.816 Spondylosis without myelopathy or radiculopathy, lumbar region; M46.96 Unspecified inflammatory spondylopathy, lumbar region; Z79.891 Long term (current) use of opiate analgesic; Z87.891 Personal history of nicotine dependence
CPT/HCPCS: 99211

== ENCOUNTER 2019-03-01 09:27 | Day surgery (SDC) | payer BC ==
[2019-02-25 15:10] VITALS: BMI 31.1
[2019-03-01 09:41] VITALS: TEMP 97.8
--- NOTE | 2019-03-01 10:02 | P.PCN ---
Date of Procedure: 03/01/19 Description of Procedure: Surgeon: Lissette Marks MD. Procedure: lumbar Medial Branch Block at bilateral L3/4, L4/5, and L5/S1 Anesthesia: Local The patient was seen and examined in the PO. Procedure risks and benefits were fully reviewed with the patient. The patient understands this is a diag nostic if local only is used, as will be the case today. The goal of the procedure is to inject medication onto the medial branch or small nerves that innervate the facet joints. In this way, we can hopefully identify which of these joints, if any, may be contributing to their pain. Informed consent for procedure was obtained. The patient was taken into the office fluoroscopy procedure room and placed prone on the table. A pillow was placed under the abdomen to reduce lumbar lordosis. Vital signs were closely monitored during the procedure. The skin over the area was prepped with Betadine X 3 and draped in usual sterile manner. Sterile technique was observed throughout procedure. Under biplanar fluoroscopic guidance, the target injection area of the L3, L4, L5 and sacral ala were targeted. A 25 gauge 31/2 inch spinal needle was then placed at the most medial and superior aspect of the transverse process near the "eye of the Christian[place] dog". Aspiration for blood was negative. 1 cc of 0.5% marcaine was injected into the targeted areas separately. [place] were withdrawn intact. No complications were noted during the procedure. The patient tolerated the procedure well. The patient was placed in supine position and transferred to the recovery area for observation and remained stable until discharged home. Home discharge instructions were given to the patient by the staff. Schedule patient for repeat injection if he has good relief. We will give the patient pain diary on today's discharge.
[2019-03-01 10:07] VITALS: BP 122/68; PULSE 78; RESP 16
--- NOTE | 2019-03-01 10:17 | FL ---
EXAMINATION TYPE: FL guided pain mgmt statistic DATE OF EXAM: 03/01/2019 HISTORY: Flouroscopy time 11 seconds of fluoroscopy provided. IMPRESSION: 1. Fluoroscopy time.
== END 2019-03-01 10:17 | disposition home or self-care (01) ==
LOC: ORPAIN 09:27
PROVIDERS: ATTEND Hospitalist
DX: M54.5 Low back pain (principal); Z88.6 Allergy status to analgesic agent

== ENCOUNTER 2019-03-15 07:29 | Day surgery (SDC) | payer BC ==
[2019-03-10 12:38] VITALS: BMI 31.1
[2019-03-15 07:45] VITALS: RESP 16; TEMP 97.1
--- NOTE | 2019-03-15 08:17 | P.PCN ---
Date of Procedure: 03/15/19 Anesthesia: none Description of Procedure: Procedure: lumbar Medial Branch Block at bilateral L3 4, L4 5, L5-S1 Diagnosis: Lumbar spondylosis without myelopathy Anesthesia: Local and XXX The patient was seen and examined in the [facility]. Procedure risks and benefits were fully reviewed with the patient. The patient understands this is a diagnostic if local only is used, as will be the case today. The goal of the procedure is to inject medication onto the medial branch or small nerves that innervate the facet joints. In this way, we can hopefully identify which of these joints, if any, may be contributing to their pain. Informed consent for procedure was obtained. The patient was taken into the office fluoroscopy procedure room and placed prone on the table. A pillow was placed under the abdomen to reduce lumbar lordosis. Vital signs were closely monitored during the procedure. The skin over the area was prepped with Betadine X 3 and draped in usual sterile manner. Sterile technique was observed throughout procedure. Under biplanar fluoroscopic guidance, the target injection area of the L3 4, L4 5, L5-S1 were targeted. A 25 gauge 31/2 inch spinal needle was then placed at the most medial and s uperior aspect of the transverse process near the "eye of the Christiano dog". Aspiration for blood was negative. 1 cc of 0.5% Ropivacaine was injected into the targeted areas separately. [place] were withdrawn intact. No complications were noted during the procedure. The patient tolerated the procedure well. The patient was placed in supine position and transferred to the recovery area for observation and remained stable until discharged home. Home discharge instructions were given to the patient by the staff. We will follow up with the patient in 2-4 weeks in the clinic. I've given him a pain diary. We'll discuss whether or not to move forward with the radiofrequency ablation depending on how well he does with the medial branch block.
[2019-03-15 08:47] VITALS: BP 128/76; PULSE 71
--- NOTE | 2019-03-15 10:40 | FL ---
Fluoroscopy HISTORY: Pain 9 seconds fluoroscopy time supplied to the referring clinician. 8 intraoperative C-arm images docume nt the procedure. See dictated report from anesthesia.
== END 2019-03-15 08:57 | disposition home or self-care (01) ==
LOC: ORPAIN 07:29
PROVIDERS: ATTEND Hospitalist
DX: M47.26 Other spondylosis with radiculopathy, lumbar region (principal)

== ENCOUNTER → 2019-04-05 | Outpatient (CLI) | payer BC ==
[2019-04-05 12:49] VITALS: BP 144/80; PULSE 66; RESP 18
--- NOTE | 2019-04-05 13:33 | P.PAINPG ---
Subjective Progress Note Date: 04/05/19 Principal diagnosis: Lumbar spondylosis This a very pleasant 64-year-old gentleman with a history of intractable back pain. He has a diagnosis of lumbar spondylosis. He is undergone 2 previous diagnostic lumbar medial branch nerve blocks. He reports that each of these reduce his pain significantly although the relief only lasted for approximately 24 hours. He presents today for further management instruction. He denies any significant bowel or bladder dysfunction. He does report at times his pain is so severe it will radiate down his legs into his feet. This is the minority of the time. Most of the time his pain is in his low back buttock and the upper part of his posterior thigh. Objective - Vital Signs Vital signs: Vital Signs Temp Pulse 66 04/05/19 12:40 Resp 18 04/05/19 12:40 BP 144/80 04/05/19 12:40 Pulse Ox 96 04/05/19 12:40 Intake & Output 04/04/19 04/05/19 04/05/19 18:59 06:59 18:59 Weight 58.967 kg - Exam General: The patient is alert and oriented. Patient is not sedated Patient answers all question appropriately. Cardiac: Heart is regular in rate and rhythm Respiratory: Clear to auscultation. No audible wheezes. Abdomen: Soft nontender nondistended. Musculoskeletal: Strength is normal bilaterally. Sensation is normal bilaterally. Straight leg raise is negative bilaterally. Neurological: Reflexes are preserved and symmetric bilaterally. Facet loading maneuvers are positive bilaterally Assessment and Plan Assessment: Lumbar spondylosis Plan: Plan of Care 1. Medications: Patient will continue to manage his pain conservatively with medications like Tylenol. 2. Interventions: We will schedule the patient for a right lumbar medial branch radiofrequency ablation at L3 4, L4 5, L5-S1. 3. Referrals: None 4. Testing: None 5. Follow-up: Right lumbar radio frequency as outlined above PQRS Measure Charge Sheet Measure #130: Documentation of Current Meds in Medical Chart: Patient not eligible for medications to be documented Measure #226: Tobacco Use: Screen & Cessation Intervention: Pt not a tobacco user Measure #111: Pneumonia Vaccination: Pneumococcal vaccine NOT administered or pr eviously given Measure #47: Advance Care Plan: Advance care planning discussed & documented, pt chose/unable to give Measure #412: Opioid Treatment Agreement: No documentation of signed opioid treatment agreement Measure #408: Opioid Therapy Follow-up Evaluation: Patient had NO f/u eval minimum every 3 months during opioid therapy Measure #317: Preventitive Care & Scrn High Bld Press & F/U: Pre-hypertensive or hypertensive BP documented, pt will f/u with PCP Measure #128: Body Mass Index (BMI) Screening & Follow-up: BMI documented ABOVE normal parameters - f/u documented Measure #131: Pain Assessment & Follow-up: Pain positive & plan documented Measure #431: Unhealthy Alcohol Use Preventative Care & Scrn: Patient not identified as an unhealthy alcohol user PQRS Narrative: Smoking Status Former smoker Blood Pressure 144/80 Pain Intensity [Lower Back] 7 Scale Used Numeric (1 - 10) Hx Alcohol Use (MH) No Home Medications: Ambulatory Orders Ibuprofen [Motrin] 400 - 800 mg PO Q8HR PRN 05/27/17 Controlled Substance Measures - Controlled Substance Measures Is patient prescribed a controlled substance at discharge?: No
== END ==
LOC: PNWHC3 12:26
PROVIDERS: ATTEND Pain Medicine Pain Medicine
DX: M47.816 Spondylosis without myelopathy or radiculopathy, lumbar region (principal); Z87.891 Personal history of nicotine dependence; Z79.1 Long term (current) use of non-steroidal anti-inflammatories (NSAID)
CPT/HCPCS: 99211

== ENCOUNTER 2019-04-27 08:30 | Day surgery (SDC) | payer BC ==
[2019-04-22 09:30] VITALS: BMI 29.8
[~2019-04-27 08:30] MED LIST changes: -IV FLUID CONTINUATION 1,000 ML IV ONE; -LACTATED RINGERS 1,000 ML IV ONE; +LACTATED RINGERS 1,000 ML IV SCH; -LIDOCAINE 1% 20 ML VIAL (10MG/ML) FOR IV START INTRADERMA ONE; -SODIUM CHLORIDE 0.9% 500 ML 500 ML IV SCH
[2019-04-27 09:04] VITALS: RESP 16; TEMP 97.5
[2019-04-27] MEDS ORDERED: LACTATED RINGERS 1,000 ML IV ONE (10:10)
[2019-04-27 10:28] VITALS: BP 133/82; PULSE 63
--- NOTE | 2019-04-27 10:57 | FL ---
EXAMINATION TYPE: FL guided pain mgmt statistic DATE OF EXAM: 04/27/2019 HISTORY: Flouroscopy time 33 seconds of fluoroscopy provided. IMPRESSION: 1. Fluoroscopy time.
--- NOTE | 2019-04-27 11:33 | P.PCN ---
Date of Procedure: 04/27/19 Procedure(s) Performed: Procedure Note: Lumbar RFA Physician: Erica Avendano MD PREOPERATIVE DIAGNOSIS: Lumbar spondylosis POSTOPERATIVE DIAGNOSIS: same OPERATION PERFORMED: Lumbar Medial Branch Radiofrequency Ablation, levels: right L3, L4, L5, sacral ala IV SEDATION with midazolam and fentanyl ESTIMATED BLOOD LOSS: None FLUOROSCOPY WAS USED. INDICATIONS FOR PROCEDURE: This patient has a clinical picture consistent with right lumbar facet arthropathy as determined after 2 rounds of Medial Branch Blocks with local anesthetic, extensive conversation with the patient and evaluation of the patient's pain diaries after each MBB. PROCEDURE AND FINDINGS: The patient was greeted in the pre procedure holding area. The risk, benefits and alternatives to the procedure were again reviewed with the patient and written informed consent was placed in the chart. Prior to the procedure a time out was completed, verifying correct patient, procedure, site, positioning, and implants and/or special equipment. An IV line was placed. The patient was taken to the procedure room and positioned prone on the fluoroscopy table. Routine monitors were applied including EKG leads, blood pressure cuff, and pulse oximetry. Then a crap game box person film was taken to identify the correct levels, mentioned above. The skin was prepped and draped in the usual sterile fashion. The overlying skin and subcutaneous tissue was anesthetized using a 25-gauge 1-1/2-inch needle with 1% preservative free lidocaine for a total volume of 1 mls per level. Under oblique, AP and lateral fluorscopic views, 145mm, 18-gauge SMK needle with a 10 mm active tip was advanced to the junction of the superior articular process and the transverse process at the levels: right L3, L4, L5, sacral ala Correct needle position was then confirmed in the lateral view. Motor stimulation was then performed at 2 Hz and up to 2V with only paraspinal muscle contraction noted at each level and no lower extremity stimulation. Lidocaine 4% x 1 ml was injected at each level prior to radiofrequency ablation. Lesioning was then carried out at 85 degrees Celsius times 90 seconds with 1 cycle per level. Following lesioning the needles were removed. The needle insertion site was dressed appropriately. The patient was taken to the recovery room where they were monitored for a brief period of time. They tolerated the procedure well and were discharged home in stable condition with post procedural instructions. Follow-up will be Clinic Visit. COMPLICATIONS: None Comment(s): None
== END 2019-04-27 10:42 | disposition home or self-care (01) ==
LOC: ORPAIN 08:30
PROVIDERS: ATTEND Anesthesiology
DX: M47.816 Spondylosis without myelopathy or radiculopathy, lumbar region (principal)
CPT/HCPCS: 64635; 64636 ×2; J2250; J3010; 99152; 99153

== ENCOUNTER 2019-06-08 09:27 | Day surgery (SDC) | payer BC ==
[2019-06-03 10:44] VITALS: BMI 29.8
[2019-06-08 10:16] VITALS: RESP 16; TEMP 97.4
[2019-06-08] MEDS ORDERED: LIDOCAINE 1% 20 ML VIAL (10MG/ML) FOR IV START INTRADERMA ONE (10:17)
--- NOTE | 2019-06-08 10:51 | P.PCN ---
Date of Procedure: 06/08/19 Procedure(s) Performed: OPERATION: Radiofrequency ablation of the medial branch lumbar area at left side, L3 medial branch, L4 medial branch, and dorsal rami of 5 levels under fluoroscopic guidance. PREOPERATIVE DIAGNOSES: 1. Lumbar facet arthropathy. 2. Lumbar degenerative disc disease. POSTOPERATIVE DIAGNOSES: 1. Lumbar facet arthropathy. 2. Lumbar degenerative disc disease. COMPLICATIONS: None. PHYSICIAN: Demetrius Penn MD ANESTHESIA: 2 versed, 50 fentanyl moderate sedation with local infiltration. CONDITION: Stable. INDICATION FOR THE PROCEDURE: This is exceeded 4-year-old male with a history of low back pain. Procedure, risks and benefits discussed with the patient who agreed with proceeding. Patient taken to the operating room, placed in prone position. All standard monitors applied to the patient. Then after induction of anesthesia, back prepped with Betadine 3 times. Then under fluoroscopic guidance we used 1% lidocaine 5 mL for skin and subcutaneous tissue infiltrations, Then after that, 18-gauge radiofrequency active-tip needles, 3 needles used, each one of them placed at the junction of the base of the transverse process and the superior articulating process of the left side at, L3-4, L4-5 and L5-S1 levels. Needle placement confirmed with AP and oblique and lateral views. Then after appropriate needle placement confirmed, we checked for the motor stimulation at 2.5 v, which was positive for localized contractions in the lumbar area and there were no contractions in the lower extremities. Then 1 cc of 4% lidocaine was injected into each needle. Then after that, the radiofrequency done at 80 degrees Centigrade for 90 seconds at each level. The needles were subsequently removed. Patient tolerated the procedure well without any complication and will follow up with the pain clinic in few weeks.
[2019-06-08] MEDS ORDERED: IV FLUID CONTINUATION 1,000 ML IV ONE (11:13)
[2019-06-08 11:15] VITALS: BP 141/75; PULSE 64
--- NOTE | 2019-06-08 11:25 | FL ---
EXAMINATION TYPE: FL guided pain mgmt statistic DATE OF EXAM: 06/08/2019 HISTORY: Flouroscopy time 11 seconds of fluoroscopy provided. IMPRESSION: 1. Fluoroscopy time.
== END 2019-06-08 11:30 | disposition home or self-care (01) ==
LOC: ORPAIN 09:27
PROVIDERS: ATTEND Student in an Organized Health Care Education/Training Program
DX: M51.36 Other intervertebral disc degeneration, lumbar region (principal); M46.96 Unspecified inflammatory spondylopathy, lumbar region
CPT/HCPCS: 64635; 64636 ×2; J2250; J3010; 99152

== ENCOUNTER → 2019-06-30 | Outpatient (CLI) | payer BC ==
[2019-06-30 15:39] VITALS: BP 146/83; PULSE 54
--- NOTE | 2019-07-05 14:30 | P.PAINPG ---
Subjective Progress Note Date: 06/30/19 This a very pleasant 64-year-old gentleman with a history of intractable back pain. He has a diagnosis of lumbar spondylosis. he recently underwent lumbar radiofrequency ablation and returns today for follow-up. He reports a significant reduction in his leg pain and improvement in his stability of the procedure, however he is still experiencing a significant amount of numbness and tingling in his bilateral posterior thighs, calves, right medial foot. He describes the sensation in his left calf as "fly crawling". He was recently evaluated by Dr. Doherty and was advised to undergo surgery, however he would like to delay this as much as possible. He is inquiring about the process of disability.he currently takes when necessary ibuprofen for pain. In addition to above, 13-point review of systems is also negative for chest pain, shortness of breath, changes in vision, changes in hearing, new onset weakness, abdominal pain, diarrhea, extreme fatigue, malaise, fever, skin changes, homicidal or suicidal ideation, or bowel or bladder incontinence. Physical exam: Vital Signs: Reviewed in EMR GENERAL: Well appearing, in no acute distress PSYCH: Mood and affect is appropriate. Awake, alert, and oriented SKIN: Skin color, texture, turgor normal, no rashes or lesions HEENT: Normocephalic, atraumatic. EOM intact CV: No pedal edema RESP: Respirations are unlabored, no audible wheezing GI: Abdomen non-distended MUSCULOSKELETAL: Bilateral lower extremity strength is normal and symmetric. Right quadriceps atrophy noted. Lumbar spine: Straight leg raising in the sitting position is negative for radicular pain. tenderness to palpation over the lumbar spine and paraspinous muscles bilaterally. positive for pain with facet loading and back extension/rotation. Buttocks: No pain to palpation over the PSIS, Juliocesar test is negative Extremities: Peripheral joint ROM is full and pain free without obvious instability or laxity in all four extremities. No edema or skin discolorations noted. Gait: Gait is slow NEUR: Bilateral lower extremity coordination and muscle stretch reflexes are physiologic and symmetric. Negative clonus. reduced sensation to light touch noted in bilateral lower extremitiesposterior thighs, calves. Cranial nerves are grossly intact. Assessment and Plan Assessment: Lumbar spondylosis lumbar radiculopathy Lumbar degenerative disc disease Plan: Plan of Care 1. Medications: prescription given for gabapentin 300 mg 3 times a day, to be up titrated slowly over 3 weeks. continue when necessary ibuprofen. 2. Interventions: none currently 3. Referrals: None, patient was instructed to discuss disability paperwork with primary care 4. Testing: None 5. Follow-up: in 1 month, for possible increase in dose of gabapentin Objective - Vital Signs Vital signs: Vital Signs Temp Pulse 54 L 06/30/19 15:13 Resp BP 146/83 06/30/19 15:13 Pulse Ox PQRS Measure Charge Sheet Measure #130: Documentation of Current Meds in Medical Chart: Patient's medications documented in chart Measure #226: Tobacco Use: Screen & Cessation Intervention: Pt not a tobacco user Measure #111: Pneumonia Vaccination: Pneumococcal vaccine NOT administered or previously given Measure #47: Advance Care Plan: Advance care planning discussed & documented, pt chose/unable to give Measure #317: Preventitive Care & Scrn High Bld Press & F/U: Pre-hypertensive or hypertensive BP documented, pt will f/u with PCP Measure #128: Body Mass Index (BMI) Screening & Follow-up: BMI documented ABOVE normal parameters - f/u documented Measure #131: Pain Assessment & Follow-up: Pain positive & plan documented, Follow-up scheduled Measure #431: Unhealthy Alcohol Use Preventative Care & Scrn: Patient not identified as an unhealthy alcohol user PQRS Narrative: Smoking Status Former smoker Blood Pressure 146/83 Pain Intensity [Bilateral 7 Lower Back] Scale Used Numeric (1 - 10) Hx Alcohol Use (MH) No Home Medications: Ambulatory Orders Ibuprofen [Motrin] 400 - 800 mg PO Q4HR PRN 05/27/17 Controlled Substance Measures - Controlled Substance Measures Is patient prescribed a controlled substance at discharge?: Yes When asked, does pt state using other controlled substances?: No If prescribed controlled substance>3 days was MAPS reviewed?: Yes If Rx opioid, was Start Talking consent form obtained?: Yes If opioid is for acute pain is fill amount 7 days or less?: No Was information provided regarding opioid addiction?: Yes
== END | disposition home or self-care (01) ==
LOC: PNWHC3 14:05
PROVIDERS: ATTEND Anesthesiology
DX: M51.16 Intervertebral disc disorders with radiculopathy, lumbar region (principal); M47.26 Other spondylosis with radiculopathy, lumbar region; Z87.891 Personal history of nicotine dependence; Z98.890 Other specified postprocedural states
CPT/HCPCS: 99211

== ENCOUNTER → 2019-07-28 | Outpatient (CLI) | payer BC ==
[2019-07-28 10:23] VITALS: BP 167/84; PULSE 70; RESP 18
--- NOTE | 2019-07-28 10:47 | P.PN ---
Subjective Progress Note Date: 07/28/19 This is a 64-year-old gentleman who works in the [employer] with chronic lower back pain and radiation to the lower extremities down to the feet with numbness and tingling in both calves. The patient has muscle wasting in the anterior thighs more on the right side than the left side as he states. He has also muscle weakness in the legs but he denies any bowel or bladder dysfunction. He had multiple injections previously including epidural steroid injections and lumbar medial branch RFA. He still complains of lower back pain which gets worse by extension of the back and by twisting and bending over. The patient is thinking about applying for disability at this point because of the his pain. The patient has seemingly back surgeon who recommended surgery. He could not tolerate Neurontin because of increased sedation. Patient denies new-onset weakness, bowel/bladder incontinence, or any other signs or symptoms of cauda equina syndrome. There are no signs of acute intoxication, and no indications of medication diversion or overuse. In addition to above, 13-point review of systems is also negative for chest pain, shortness of breath, changes in vision, changes in hearing, new onset weakness, abdominal pain, diarrhea, extreme fatigue, malaise, fever, skin changes, homicidal or suicidal ideation, or bowel or bladder incontinence. Vital Signs: Reviewed in EMR Gen: AAOx3, NAD HEENT: PERRLA,hearing grossly normal Pulm: resp unlabored Heart: Regular Neck: supple, trachea midline Neuro exam of the lower extremities: Decreased knee reflexes bilaterally and absent in Bilaterally and symmetrically. Decreased knee flexion to 3 out of 5 bilaterally and decreased hip flexion to 4 out of 5 bilaterally and normal ankle flexion and extension. Straight leg raising test: Negative bilaterally Range of motion of the lumbar spine: Facet loading test: Significantly positive Tenderness in the paravertebral musculature: Positive bilaterally in the lumbar area Neuro: CN II-XII grossly intact, Imaging: Reviewed in EMR/chart Assessment: Lumbar spondylosis with possible myelopathy Proximal muscle wasting in the lower extremities Plan: 1. Explanation: Opioid and psychological risk scores were reviewed. Diagnoses, prognoses, and multiple treatment options including but not limited to physical therapy, interventional therapies, adjuvant medical therapies, narcotic medication therapies, and surgery were discussed with the patient and all questions were answered to the patient's satisfaction. 2. Opioid agreement: No was prescribed 3. Counseling: The patient was counseled extensively on SMOKING CESSATION, BODY MASS INDEX, EXERCISE. Specifically, the patient was instructed regarding the importance of smoking cessation, obesity, and exercise in the context of both chronic pain and overall health. 4. Procedures: None at this point 5. Consultations: Referred to neurology for EMG on the lower extremities due to his muscle wasting proximally 6. Investigations: EMG of the lower extremities 7. Medications: None 8. Disposition: Return to clinic as needed 9. Maps were reviewed and were appropriate. PQRS measures: 1-Patient's medications are documented in the chart. 2-Tobacco use is negative, counseling given 3-Patient has not had a pneumococcal vaccine. 4-Advanced care planning discussed, patient unable to give 5-Opioid contract not signed with the patient. 6-Pain positive, follow-up visit or procedure scheduled 7-Patient's blood pressure measured and documented above normal limits. The patient will follow up with his primary care physician. 8-Patient's weight was measured, and body mass index ABOVE the normal limits, and counseling was done. Patient instructed to follow up with PCP. 9-Patient WAS NOT identified as an unhealthy alcohol user. Objective - Vital Signs Vital signs: Vital Signs Temp Pulse 70 07/28/19 10:14 Resp 18 07/28/19 10:14 BP 167/84 07/28/19 10:14 Pulse Ox 97 07/28/19 10:14
== END ==
LOC: PNWHC3 10:07
PROVIDERS: ATTEND Anesthesiology
DX: M47.816 Spondylosis without myelopathy or radiculopathy, lumbar region (principal); M62.562 Muscle wasting and atrophy, not elsewhere classified, left lower leg; M62.561 Muscle wasting and atrophy, not elsewhere classified, right lower leg
CPT/HCPCS: 99211